=== PATIENT | female | born 1955 | race Hispanic/Latino ===

== ENCOUNTER 2019-07-10 21:35 | Emergency (ER) | payer BC ==
[2019-07-10] MEDS ORDERED: DIAZEPAM 5 MG TABLET ONE (22:24)
[2019-07-10] MEDS ORDERED: ONDANSETRON 4 MG (ODT) TAB ONE (22:25)
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
[2019-07-11 01:03] VITALS: BP 127/75; O2SAT 98
[2019-07-11 01:04] VITALS: TEMP 98.2
--- NOTE | 2019-07-11 18:23 | EKG ---
Test Date: 2019-07-10 Test Time: 22:35:26 Rug Clipper: SEEMA MEASUREMENT RESULTS: Intervals: Rate: 59 AK: 148 QRSD: 78 QT: 404 QTc: 399 Gonzales: P: 42 AK: 148 QRS: 35 T: 35 INTERPRETIVE STATEMENTS: Sinus bradycardia Otherwise normal ECG Compared to ECG 01/06/2018 14:19:41 Sinus rhythm no longer present Prolonged QT interval no longer present Electronically Signed On 07-11-19 18:22:45 CDT by Salinas Read
--- NOTE | 2019-07-12 11:59 | RAD REPORT ---
EXAM DESCRIPTION: CT Head Without Intravenous Contrast CLINICAL HISTORY: The patient is 64 years old and is Female; left facial paresthesia TECHNIQUE: Axial computed tomography images of the head/brain without intravenous contrast. Sagitt al and coronal reformatted images were created and reviewed. This CT exam was performed using one o r more of the following dose reduction techniques: automated exposure control, adjustment of the mA and/or kV according to patient size, and/or use of iterative reconstruction technique. COMPARISON: CT of the head April 12, 2017. FINDINGS: BRAIN: Unremarkable. The hollingsworth-white matter differentiation is preserved . No hemorrhag e. No significant white matter disease. No edema. No extra-axial fluid collections. VENTRICLES: Unremarkable. No ventriculomegaly. BONES/JOINTS: No acute fracture. SOFT TISSUES: Unremarkable. SINUSES: Unremarkable as visualized. No acute sinusitis. MASTOID AIR CELLS: Unremarkable as visualized. No mastoid effusion. ORBITS: Unremarkable as visualized. IMPRESSION: No acute intracranial findings. Electronically signed by: Mara Lobato MD 07/10/2019 11:05 PM CDT Due to temporary technical issues with the PACS/Fluency reporting system, reports are being signed by the in house radiologist as a courtesy to ensure prompt reporting. The interpreting radiologist is f ully responsible for the content of the report.
== END 2019-07-11 00:02 | disposition home or self-care (01) ==
LOC: ER 21:35
DX: R20.2 Paresthesia of skin (principal); F41.9 Anxiety disorder, unspecified; I10 Essential (primary) hypertension; Z91.09 Other allergy status, other than to drugs and biological substances; Z88.8 Allergy status to other drugs, medicaments and biological substances
CPT/HCPCS: 70450; 93005; 99284

== ENCOUNTER 2019-07-11 11:02 | Emergency (ER) | payer BC, SELFPAY ==
[2019-07-11] MEDS ORDERED: FAMOTIDINE 20 MG/2 ML VIAL IV ONE (12:41)
[2019-07-11] MEDS ORDERED: NA CHLORIDE 0.9% 1,000 ML ONE (12:41)
[2019-07-11] MEDS ORDERED: LORazepam 2 MG/ML VIAL ONE (12:41)
[2019-07-11] MEDS ORDERED: ONDANSETRON 4 MG/2 ML VIAL ONE (12:41)
[2019-07-11 13:37] LABS: Basophils % 0.5 % (0-1.3); Hematocrit 38.8 % (36.0-45.0); Lymphocytes % 13.4 % (15.3-44.8); MPV 8.4 fL (7.6-11.3); RBC Red Blood Cell Count 4.44 M/uL (3.86-4.86)
[2019-07-11 13:48] LABS: ALT/SGPT 26 U/L (12-78); AST/SGOT 15 U/L (15-37); Alkaline Phosphatase 68 U/L (45-117); BUN Blood Urea Nitrogen 9 mg/dL (7-18); Bicarbonate 26 mmol/L (21-32); Bilirubin Direct 0.1 mg/dL (0-0.2); Bilirubin Total 0.6 mg/dL (0.2-1.0); Glucose Level 110 mg/dL (74-106); Lipase 87 U/L (73-393); Potassium 3.7 mmol/L (3.5-5.1); Protein, Total 7.5 g/dL (6.4-8.2); Sodium Level 142 mmol/L (136-145)
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
== END 2019-07-11 15:09 | disposition home or self-care (01) ==
LOC: ER 11:02
DX: R11.2 Nausea with vomiting, unspecified (principal); I10 Essential (primary) hypertension; Z91.09 Other allergy status, other than to drugs and biological substances; Z88.8 Allergy status to other drugs, medicaments and biological substances
CPT/HCPCS: 36415; 80048; 80076; 83690; 85025; 96361; 96374; 96375; 99284; J2405; J7030

== ENCOUNTER 2019-07-13 18:44 | Emergency (ER) | payer SELFPAY ==
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
[2019-07-13] MEDS ORDERED: hydrOXYzine HCl 25 MG TAB ONE (19:54)
[2019-07-13 20:22] VITALS: TEMP 98.4
[2019-07-13 20:23] VITALS: BP 150/91; O2SAT 95
== END 2019-07-13 20:14 | disposition home or self-care (01) ==
LOC: ER 18:44
DX: F41.9 Anxiety disorder, unspecified (principal); I10 Essential (primary) hypertension; Z91.09 Other allergy status, other than to drugs and biological substances; Z88.8 Allergy status to other drugs, medicaments and biological substances
CPT/HCPCS: 99283

== ENCOUNTER 2022-06-08 11:07 | Emergency (ER) | payer OTHER, SELFPAY ==
[2022-06-08 12:02] LABS: Urine Blood Negative (Negative); Urine Glucose Negative (Negative); Urine Protein Negative (Negative); Urine Specific Gravity 1.015 (1.005-1.030)
[2022-06-08 12:04] LABS: Absolute Lymphocytes (CBC) 1.8 K/uL (0.7-4.9); Hematocrit 45.4 % (36.0-45.0); Lymphocytes % 23.7 % (15.3-44.8); MCV 88.2 fL (80-100); MPV 7.9 fL (7.6-11.3); RBC Red Blood Cell Count 5.15 M/uL (3.86-4.86)
[2022-06-08] MEDS ORDERED: DICYCLOMINE HCL 10 MG CAP ONE (12:22)
[2022-06-08] MEDS ORDERED: LORazepam 2 MG/ML VIAL ONE ×2 (12:22→17:38)
[2022-06-08] MEDS ORDERED: HYDROCODONE/APAP 10/325 TAB ONE (12:22)
[2022-06-08 12:23] LABS: Albumin 4.4 g/dL (3.4-5.0); Bilirubin Total 0.6 mg/dL (0.2-1.0); Potassium 3.1 mmol/L (3.5-5.1); Protein, Total 8.7 g/dL (6.4-8.2)
[2022-06-08] MEDS ORDERED: ONDANSETRON 4 MG/2 ML VIAL ONE (12:23)
[2022-06-08] MEDS ORDERED: Ringers Lactate 1,000 ML IV ONE (12:23)
--- NOTE | 2022-06-08 16:43 | RAD REPORT ---
EXAM DESCRIPTION: CT - Abdomen Pelvis Wo Contrast - 06/08/2022 4:24 pm CLINICAL HISTORY: Abdominal pain COMPARISON: 2017 TECHNIQUE: Computed axial tomography of the abdomen and pelvis was obtained. IV and oral contrast we re not requested. All CT scans are performed using dose optimization technique as appropriate and may include automated exposure control or mA/KV adjustment according to patient size. FINDINGS: The evaluation of solid organs, vessels and bowel is limited secondary to the lack of con trast administration. 6 millimeter calculus right kidney. No hydronephrosis. The liver, spleen, pancreas, adrenals and left kidney appear grossly normal. The appendix is normal. There is no evidence of diverticulitis. No adnexal mass. Cholecystectomy IMPRESSION: Nonobstructing right renal calculus
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
[2022-06-08 18:43] VITALS: TEMP 98.5
[2022-06-08 18:53] VITALS: BP 157/74; O2SAT 95
== END 2022-06-08 17:52 | disposition home or self-care (01) ==
LOC: ER 11:07
DX: R11.2 Nausea with vomiting, unspecified (principal); R19.7 Diarrhea, unspecified; I10 Essential (primary) hypertension; Z88.6 Allergy status to analgesic agent; Z88.8 Allergy status to other drugs, medicaments and biological substances; Z20.822 Contact with and (suspected) exposure to COVID-19
CPT/HCPCS: 85025; 36415; 81003; 83690; 80053; 87804 ×2; 74176; 96375; 96374; 99284; U0003; J7120; J2405

== ENCOUNTER → 2024-01-17 | Emergency (ER) | payer OTHER ==
[~2024-01-17] MED LIST: FAMOTIDINE 20 MG/2 ML VIAL IV ONE; FOLIC ACID 5 MG/ML VIAL ONE; NA CHLORIDE 0.9% 1,000 ML ONE; NA CHLORIDE 0.9% 500 ML ONE; TENECTEPLASE 50 MG/10 ML VIAL IV ONE
--- NOTE | 2024-01-17 15:06 | RAD REPORT ---
EXAM DESCRIPTION: RAD - Chest Single View - 01/17/2024 3:00 pm CLINICAL HISTORY: COUGH COMPARISON: Chest Single View dated 01/06/2018; Chest Single View dated 01/05/2017; CHEST SINGLE VIEW dated 01/11/2011 FINDINGS: Lines: None. Lungs: Low lung volumes with accentuation of pulmonary vasculature . Cannot exclude bilateral airspac e opacities. Pleural: No significant pleural effusions or pneumothorax. Cardiac: The heart size is within normal limits. Mediastinum: Within normal limits. Bones: No acute fractures. Other: None IMPRESSION: Low lung volumes which accentuates the pulmonary interstitial markings. A pneumonia woul d be difficult to entirely exclude but is not favored. A standard PA and lateral could better evaluat e if clinically indicated.
--- NOTE | 2024-01-17 15:13 | RAD REPORT ---
EXAM DESCRIPTION: CT - Ct Stroke Brain Wo Cont - 01/17/2024 3:07 pm CLINICAL HISTORY: STROKE ALERT COMPARISON: Head Brain Wo Cont dated 07/10/2019; Head Brain Wo Cont dated 01/06/2018 TECHNIQUE: All CT scans are performed using dose optimization technique as appropriate and may inclu de automated exposure control or mA/KV adjustment according to patient size. FINDINGS: No intracranial hemorrhage, hydrocephalus or extra-axial fluid collection.No areas of brai n edema or evidence of midline shift. The paranasal sinuses and mastoids are clear. The calvarium is intact. IMPRESSION: No acute intracranial abnormality. Conveyed to Dr. Ram by Dr. Astudillo at 1508 on 01/17/24
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
[2024-01-17 15:38] LABS: Absolute Basophils 0.1 K/uL (0-0.5); Absolute Lymphocytes (CBC) 1.6 K/uL (0.7-4.9); Absolute Monocytes 0.6 K/uL (0.1-1.3); Absolute Neutrophil 5.4 K/uL (1.8-8.0); Basophils % 0.7 % (0-1.3); Eosinophils % 0.4 % (0-4.4); Hematocrit 42.9 % (36.0-45.0); Hemoglobin 14.1 g/dL (12.0-15.0); MCH 29.4 pg (27.0-35.0); MCHC 32.8 g/dL (32.0-36.0); MCV 89.7 fL (80-100); MPV 7.8 fL (7.6-11.3); Monocytes % 8.1 % (3.3-12.3); Neutrophils % 69.8 % (41.7-73.7); Platelets 330 thou/uL (152-406); RBC Red Blood Cell Count 4.79 M/uL (3.86-4.86); Red Cell Distribution Width 14.4 % (12.1-15.2)
[2024-01-17 15:39] LABS: PT Prothrombin Time 11.8 SECONDS (9.5-12.5); Protime INR 1.07
[2024-01-17 16:00] LABS: Albumin 3.7 g/dL (3.4-5.0); Albumin/Globulin Ratio 0.8 (1.1-1.8); Anion Gap 7.8 mEq/L (5.0-15.0); Bilirubin Direct 0.2 mg/dL (0-0.2); Bilirubin Indirect, Calculated 0.4 mg/dL (0.2-0.8); Bilirubin Total 0.6 mg/dL (0.2-1.0); Globulin 4.4 g/dL (2.3-3.5); Magnesium 2.3 mg/dL (1.6-2.4); Potassium 3.8 mEq/L (3.5-5.1); Protein, Total 8.1 g/dL (6.4-8.2)
[2024-01-17 16:05] LABS: Troponin High Sensitivity 70.4 pg/mL (<58.9)
[2024-01-17 16:10] LABS: Specific Gravity 1.006 (1.005-1.030); Urine Bilirubin NEGATIVE (Negative); Urine Blood Negative (Negative); Urine Clarity Clear (Clear); Urine Color Colorless (Yellow); Urine Glucose NEGATIVE (Negative); Urine Ketones NEGATIVE (Negative); Urine Microscopic Reflex YN NO UMIC; Urine Nitrite NEGATIVE (Negative); Urine Protein NEGATIVE (Negative); Urine Urobilinogen Normal (Normal); Urine pH 6.5 (5.0-7.0)
[2024-01-17 17:33] VITALS: BP 153/85; TEMP 98.3; O2SAT 97
--- NOTE | 2024-01-19 14:20 | EKG ---
Test Date: 2024-01-17 Test Time: 15:30:05 Senior Controls Engineer: TL MEASUREMENT RESULTS: Intervals: Rate: 75 AL: 162 QRSD: 72 QT: 386 QTc: 431 [place]: P: 54 AL: 162 QRS: 49 T: -14 INTERPRETIVE STATEMENTS: Normal sinus rhythm Nonspecific T wave abnormality Abnormal ECG Compared to ECG 07/10/2019 22:35:26 T-wave abnormality now present Sinus bradycardia no longer present Electronically Signed On 01-19-24 14:14:52 CDT by Hakeem Grimm
== END ==
LOC: ER 14:03
DX: R47.01 Aphasia (principal); R42 Dizziness and giddiness; I10 Essential (primary) hypertension; R79.89 Other specified abnormal findings of blood chemistry; R29.702 NIHSS score 2; Z87.442 Personal history of urinary calculi; Z88.6 Allergy status to analgesic agent; Z88.8 Allergy status to other drugs, medicaments and biological substances; Z91.048 Other nonmedicinal substance allergy status
CPT/HCPCS: 96365; 92977; 93005; 85025; 80048; 36415; 83735; 85610; 82947; 80076; 81003; 84484; 83880; 70450; 71045; 96375; 99285; J3101; J7040; J7030